=== PATIENT | female | born 2000 | race Caucasian/White ===

== ENCOUNTER → 2024-04-10 09:43 | Outpatient (REF) | payer OTHER, SELFPAY | LOC: RAD 09:43 | PROVIDERS: ATTENDING PHYSICIAN Obstetrics & Gynecology; FAMILY PHYSICIAN Family Medicine | DX: R10.2 Pelvic and perineal pain (principal) | CPT/HCPCS: 76830; 76856 ==

== ENCOUNTER 2025-06-07 13:52 | Emergency (ER) | payer OTHER, SELFPAY ==
[2025-06-07 14:06] VITALS: BP 162/98
[2025-06-07 14:33] LABS: Hematocrit 35.9 % (37.0-47.0); Hemoglobin 12.9 g/dL (12.0-16.0); Mean Corp Hgb Conc. 35.9 g/dL (33.0-37.0); Mean Corpuscular Volume 81.6 fL (81.0-99.0); Nucleated Red Blood Cells % 0 %; Platelet Count 234 10^3/uL (130-400); Red Cell Dist. Width 12.2 % (11.5-14.5)
[2025-06-07 14:39] LABS: HCG, Serum Qualitative Screen Negative
[2025-06-07 14:44] LABS: ALT (SGPT) 13 U/L (0-35); AST (SGOT) 19 U/L (14-36); Albumin 4.9 g/dl (3.5-5.0); Alkaline Phosphatase 49 U/L (38-126); Blood Urea Nitrogen 10 mg/dl (7-17); Calcium 9.6 mg/dl (8.4-10.2); Carbon Dioxide 19 mmol/L (22-30); Chloride 111 mmol/L (98-107); Glucose 102 mg/dl (70-99); Potassium 3.8 mmol/L (3.5-5.1); Sodium 139 mmol/L (135-145); Total Protein 7.5 g/dl (6.3-8.2); eGFR > 60.00
[2025-06-07 17:02] VITALS: BP 123/81; BMI 23.7
--- NOTE | 2025-06-07 17:04 | ED.GENMED ---
History of Present Illness
General
Chief Complaint: Medication Reaction
Source: patient
Exam Limitations: none
Time Seen by Provider: 06/07/25 16:50
History of Present Illness
History of Present Illness:
24yoF with a history of depression presenting for evaluation after a medication side effect. Patient has been experiencing some neck and joint pains so she was seen by her PCP yesterday. She was prescribed 10 mg Flexeril to take at nighttime. She
took her first dose last night. Shortly after taking this, she started to feel unwell with dizziness, brain fog, nausea, and sweating. Symptoms continued into this morning. She continues to feel somewhat lightheaded but symptoms have
significantly improved. She has never taken this medication before and believes it is reacting with the SSRI that she takes. She denies any chest pain.
Phy Exam
General Physical Exam
General Presentation: well appearing and no apparent distress
General Skin: warm and dry
General Habitus: normal
General Mental: alert
ENT Exam
ENT Exam: pharynx normal and normocephalic
Cardiovascular Exam
Cardiovascular Exam: regular rate/rhythm and no murmur
Pulmonary Exam
Pulmonary Exam: lungs clear, no respiratory distress, no rales, no crackles, no rhonchi and no wheezing
Neurological Exam
Neurological Exam: alert
[place] Coma Scale
Eye Opening: Spontaneous
Verbal Response: Oriented
Motor Response: Obeys Commands
GCS Total Score: 15
Skin Exam
Skin Exam: normal color and warm/dry
Psychiatric Exam
Psychiatric Exam: normal mood/affect
Course
Orders/Labs/Results
Orders:
Orders
06/07/25 14:10
Test Result ONCE
06/07/25 14:18
CBC/With Diff [Complete Blood Count/With Diff] Urgent
Comprehensive Metabolic Panel Urgent
HCG, Serum Qualitative Screen Urgent
Abnormal Lab Results
06/07/25
14:18
Hct 35.9 L %
(37.0-47.0)
Chloride 111 H mmol/L
(98-107)
Carbon Dioxide 19 L mmol/L
(22-30)
Glucose 102 H mg/dl
(70-99)
06/07/25 14:18
06/07/25 14:18
Vital Signs
Initial and Last Documented VS:
Initial Vital Signs
Temp Pulse Resp BP Pulse Ox
98.8 F 118 16 162/98 100
06/07/25 14:06 06/07/25 14:06 06/07/25 14:06 06/07/25 14:06 06/07/25 14:06
Last Documented Vital Signs
Temp Pulse Resp BP Pulse Ox
98.2 F 76 20 123/81 100
06/07/25 17:02 06/07/25 17:02 06/07/25 17:02 06/07/25 17:02 06/07/25 17:05
MDM/Problems Addressed
Differential Diagnosis Includes:
24yoF presenting for possible medication reaction after taking Flexeril for the first time last night. C/o nausea, lightheadedness, brain fog. Now feeling improved since waiting in the waiting room. HR 118 in triage which normalized without
intervention. Remainder of vitals stable. She is very well-appearing and exam is reassuring. Differential diagnosis includes: Medication side effect, dehydration, anxiety
Lab work obtained in triage which is unremarkable including normal blood counts, renal function, glucose. hCG negative. No indication for further testing at this time. She was advised to monitor her symptoms at home and follow-up with her PCP.
Patient in agreement with plan and was discharged in stable condition.
*Pulse Oximetry
SaO2: 100
Oxygen Mode of Delivery: Room air
Patient hypoxic: no (100%)
*Critical Care Note
Total Time (30-74mins, 75-104mins- exclusive of procedures): Not Applicable
ED Attending Note
-
Portions of this chart may have been created with voice recognition software.� Occasional wrong word or��sound alike� substitutions may have occurred due to the inherent limitations of voice recognition software.
Discharge Plan
Departure
Patient Disposition: Home (Routine Discharge)
Date of Disposition: 06/07/25
Time of Disposition: 17:05
Patient with high blood pressure during this ER visit?: No
Discharge Problem:
Medication side effects
Instructions: Adverse Drug Reactions, Adult ED
Activity Restrictions/Additional Instructions:
Stop taking Flexeril.
Please follow-up with your family doctor on Monday. Return to the ER with any new or worsening symptoms.
Interventions
Interventions:
*Risk Screen - Suicide Last Done: 06/07/25 14:06
*General Assessment Last Done: 06/07/25 17:04
*Neglect/Abuse Screening Last Done: 06/07/25 14:06
*ED- Fall Risk Assessment Last Done: 06/07/25 17:04
*ED COVID-19 Vaccine History Last Done: 06/07/25 17:04
*Nursing Disposition Last Done: 06/07/25 17:17
ED-EENT Assessment Last Done: 06/07/25 17:04
ED- Pulmonary Assessment Last Done: 06/07/25 17:04
ED-Skin Assessment Last Done: 06/07/25 17:04
Discharge Date and Time
Discharge Date/Time: 06/07/25 17:57
Print Language: PERSIAN
== END 2025-06-07 17:57 | disposition home or self-care (01) ==
LOC: EMR 13:52
PROVIDERS: Emergency Medicine; EMERGENCY PHYSICIAN Emergency Medicine
DX: R42 Dizziness and giddiness (principal); T48.1X5A Adverse effect of skeletal muscle relaxants [neuromuscular blocking agents], initial encounter
CPT/HCPCS: 99283; 80053; 84703; 85025